=== PATIENT | male | born 2000 | race Caucasian/White ===

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

== ENCOUNTER 2019-09-24 21:44 | Emergency (ER) | payer OTHER ==
--- NOTE | 2019-09-24 21:53 | PDOC ---
Rapid Medical Evaluation Chief Complaint: Chest Pain Time Seen by Provider: 09/24/19 21:53 Medical Evaluation: Allergies Allergy/AdvReac Type Severity Reaction Status Date / Time No Known Allergies Allergy Verified 10/17/16 04:51 09/24/19 21:53 19 year old male c/o palpitations and left sided chest pain started today. A: palpitations/ chest pain P: ekg chest xray 09/24/19 21:57 Discharge Disposition - Diagnosis Palpitations Chest pain Qualifiers: Chest pain type: unspecified Qualified Code(s): R07.9 - Chest pain, unspecified - Referrals - Patient Instructions - Post Discharge Activity
[2019-09-24 21:55] VITALS: BP 121/68; PULSE 70; TEMP 98.5; BMI 22.3
--- NOTE | 2019-09-24 22:06 | PDOC ---
History of Present Illness - General History Source: Patient Exam Limitations: No Limitations <Lewis Quinn - Last Filed: 09/25/19 02:17> <Reema Caicedo - Last Filed: 09/25/19 22:22> - General Chief Complaint: Chest Pain Stated Complaint: CHEST PAIN Time Seen by Provider: 09/24/19 21:53 - History of Present Illness Initial Comments: 09/24/19 22:06 19y previously healthy M presenting w palpitations w subsequent left sided chest discomfort radiating up neck/jaw numbness at 5pm today while sitting in the car talking to friend started today, lasting 1min, self resolved discomfort w persistent palpitations since. 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 No fam cardiac hx. Smokes marijuana and hooka, last use this morning. Denies fever, n/v, cough, SOB. (Lewis Quinn) Past History - Medical History COPD: No - Immunization History Immunization Up to Date: Yes - Psycho-Social/Smoking History Smoking History: Current every day smoker Have you smoked in the past 12 months: Yes Number of Cigarettes Smoked Daily: 0 Information on smoking cessation initiated: Yes - Substance Abuse Hx (Audit-C & DAST Scrn) How often the patient has a drink containing alcohol: Monthly or less How often the patient has six or more drinks on one occasion: Never Score: In Men: 4 or > Positive; In Women: 3 or > Positive: 1 Screen Result (Pos requires Nsg. Audit-10AR): Negative In the last yr the pt used illegal drug/Rx for NonMed reason: Yes Score: Yes response is considered Positive: 1 Screen Result (Positive result requires Nsg. DAST-10): Positive <Lewis Quinn - Last Filed: 09/25/19 02:17> <Reema Caicedo - Last Filed: 09/25/19 22:22> - Medical History Allergies/Adverse Reactions: Allergies Allergy/AdvReac Type Severity Reaction Status Date / Time No Known Allergies Allergy Verified 09/24/19 21:55 Home Medications: Ambulatory Orders Cyclobenzaprine HCl 7.5 mg PO HS PRN #5 tablet 10/17/16 Naproxen 250 mg PO BID #14 tablet 10/17/16 Review of Systems - Review of Systems Constitutional: No: Chills, Fever HEENTM: No: Eye Pain, Ear Discharge Respiratory: No: Cough, Shortness of Breath Cardiac (ROS): Yes: Palpitations. No: Chest Pain, Lightheadedness ABD/GI: No: Nausea, Vomiting : No: Burning, Flank Pain Musculoskeletal: No: Back Pain, Joint Pain Integumentary: No: Bruising, Dryness Neurological: No: Headache, Seizure Psychiatric: Yes: Stressors. No: Anxiety, Depression Endocrine: No: Intolerance to Cold, Intolerance to Heat Hematologic/Lymphatic: No: Anemia, Blood Clots <Lewis Quinn - Last Filed: 09/25/19 02:17> *Physical Exam - Physical Exam General Appearance: Yes: Nourished, Appropriately Dressed. No: Apparent Distress HEENT: positive: EOMI, AGGIE, Normal Voice, Hearing Grossly Normal. negative: Scleral Icterus (R), Scleral Icterus (L) Respiratory/Chest: positive: Lungs Clear, Normal Breath Sounds. negative: Chest Tender, Respiratory Distress Cardiovascular: positive: Regular Rhythm, Regular Rate, S1, S2. negative: Edema, Murmur Gastrointestinal/Abdominal: positive: Normal Bowel Sounds, Flat, Soft. negative: Tender, Organomegaly Integumentary: positive: Normal Color, Warm. 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 negative: Facial Droop, Numbness, Sensory Deficit, Confused, Disoriented <Lewis Quinn - Last Filed: 09/25/19 02:17> - Vital Signs Last Vital Signs Temp Pulse Resp BP Pulse Ox 98.5 F 70 18 121/68 99 09/24/19 21:53 09/24/19 21:53 09/24/19 21:53 09/24/19 21:53 09/24/19 22:33 ED Treatment Course - LABORATORY CBC & Chemistry Diagram: 09/24/19 22:30 09/24/19 22:30 <Lewis Quinn - Last Filed: 09/25/19 02:17> - LABORATORY CBC & Chemistry Diagram: 09/24/19 22:30 09/24/19 22:30 <Reema Caicedo - Last Filed: 09/25/19 22:22> - ADDITIONAL ORDERS Additional order review: 09/24/19 22:30 RBC 4.80 MCV 94.2 MCHC 34.1 RDW 13.1 MPV 7.8 Neutrophils % 53.2 D Lymphocytes % 37.5 D Monocytes % 7.2 Eosinophils % 1.6 Basophils % 0.5 Medical Decision Making <[place],Lewis - Last Filed: 09/25/19 02:17> - Medical Decision Making 09/24/19 22:36 CXR - no acute pathology EKG 2147 - NSR, LVH, HR 63, QTc 388, TWI V1-2, peaked TW V3-6 2nd EKG 0132 - normalized TWI V2, unchanged LVH, peaked TW --- 19y previously healthy M presenting w palpitations w subsequent left sided chest discomfort, neck/jaw numbness at 5pm today Likely anxiety. Low concern for CVA (no focal neuro deficits) vs ACS (few risk factors, young age, neg tropx2) vs PNA (clear lungs) vs thyroid (wnl). EKG showed LVH, Peaked T waves V3-6, no priors Pt eloped before 2nd trop resulted (Lewis Quinn) Discharge - Discharge Information Problems reviewed: Yes <Lewis Quinn - Last Filed: 09/25/19 02:17> <Reema Caicedo - Last Filed: 09/25/19 22:22> - Discharge Information Clinical Impression/Diagnosis: Palpitations Condition: Good Disposition: ELOPED - Follow up/Referral Referrals: Ryley Hicks MD [Staff Physician] - Yfn Starks MD [Staff Physician] - - Patient Discharge Instructions Patient Printed Discharge Instructions: DI for Chest Pain Additional Instructions: You left against medical advice before all of your lab testing resulted Follow up with the referred primary care Dr Hicks and psychotherapist Dr Starks
[2019-09-24 22:37] LABS: BASO % 0.5 % (0-2.0); EOS % 1.6 % (0-4.5); HEMATOCRIT 45.2 % (35.4-49); HEMOGLOBIN 15.4 GM/dL (11.7-16.9); LYMPH % 37.5 % (8-40); MCH 32.1 pg (25.7-33.7); MCHC 34.1 g/dl (32.0-35.9); MEAN CELL VOLUME 94.2 fl (80-96); MEAN PLT VOLUME 7.8 fl (7.5-11.1); MONO % 7.2 % (3.8-10.2); NEUT % 53.2 % (42.8-82.8); PLATELET COUNT 184 K/MM3 (134-434); RDW 13.1 % (11.9-15.9); WHITE BLOOD COUNT 5.9 K/mm3 (4.0-10.0)
[2019-09-24 23:08] LABS: PH,URINE 5.5 (5.0-8.0); URINE APPEARANCE CLEAR; URINE BILIRUBIN NEGATIVE (NEGATIVE); URINE COLOR YELLOW; URINE GLUCOSE (UA) NEGATIVE (NEGATIVE); URINE KETONE NEGATIVE (NEGATIVE); URINE LEUK ESTERASE NEGATIVE (NEGATIVE); URINE NITRITE NEGATIVE (NEGATIVE); URINE PROTEIN NEGATIVE (NEGATIVE)
[2019-09-24 23:12] LABS: ALBUMIN 4.6 g/dl (3.4-5.0); ALK PHOS 76 U/L (45-117); ANION GAP 6 MMOL/L (8-16); BILIRUBIN,TOTAL 0.8 mg/dL (0.2-1); BLOOD UREA NITROGEN 7.4 mg/dL (7-18); CALCIUM 8.9 mg/dL (8.5-10.1); CHLORIDE 108 mmol/L (98-107); CO2 25 mmol/L (21-32); CREATININE 0.8 mg/dL (0.55-1.3); GLUCOSE,RANDOM 87 mg/dL (74-106); POTASSIUM 3.9 mmol/L (3.5-5.1); SGOT/AST 15 U/L (15-37); SGPT/ALT 16 U/L (13-61); SODIUM 139 mmol/L (136-145); TOT PROT 7.5 g/dl (6.4-8.2)
[2019-09-24 23:17] LABS: COCAINE, UR NEGATIVE ng/ml (CUTOFF=300); OPIATES, URI NEGATIVE ng/ml (CUTOFF=300); URINE AMPHETAMINES NEGATIVE ng/ml (CUTOFF=500); URINE BARBITURATES NEGATIVE ng/ml (CUTOFF=200)
[2019-09-24 23:18] LABS: METHADONE, UR NEGATIVE ng/ml (CUTOFF=300); PHENCYCLIDINE,URINE NEGATIVE ng/ml (CUTOFF=25); URINE BENZODIAZEPINES NEGATIVE ng/ml (CUTOFF=200)
--- NOTE | 2019-09-24 23:53 | PDOC ---
Documentation entered by Elder Daniel SCRIBE, acting as scribe for Reema Caicedo MD. Reema Caicedo MD: This documentation has been prepared by the scribe, Elder Hammer SCRIBE, under my direction and personally reviewed by me in its entirety. I confirm that the documentation accurately reflects all work, treatment, procedures, and medical decision making performed by me. Attending Attestation - Resident Resident Name: Lewis Quinn - ED Attending Attestation I have performed the following: I have examined & evaluated the patient, The case was reviewed & discussed with the resident, I agree w/resident's findings & plan, Exceptions are as noted - HPI HPI: 09/24/19 23:01 The patient is a 19 year old male with no significant past medical history who presents to the ED with chest pain causing radiating cheek and jaw numbness/pain that began tonight at 5pm while sitting in a car with friends. The patient endorses intermittent chest palpitations that began 1 month ago. He notes experiencing new stressors including dropping out of school and starting a new job. Denies fever, chills and/or any GI symptoms. Denies any symptoms. Denies any other symptoms. Allergies: NKDA Social Hx: The patient reports he currently smokes cigarettes, marijuana, and hookah (last smoked this afternoon. Patient reports he consumes alcohol monthly or less. Surgical Hx:None reported Family Hx: None reported - Physicial Exam PE: 09/24/19 23:30 GENERAL: Well-appearing, well-nourished. No apparent distress. HEENT: Normocephalic, atraumatic. PERRL, EOM intact. CARDIOVASCULAR: Normal S1, S2. Regular rate and rhythm. PULMONARY: Clear to auscultation bilaterally. ABDOMEN: Soft, non-distended, non-tender. EXTREMITIES: Normal ROM in all four extremities. No gross deformities. SKIN: Warm, dry. No rash NEUROLOGICAL: No focal neurological deficits. - Medical Decision Making 09/24/19 23:49 slender 19 yo male experienced palpitations and chest tightness and some epigastric burning today that last 10-15 minutes no family h/o early cardiac demise denies shortness of breath ,lightheadedness first troponin negative 09/24/19 23:52 ekg NSR @ 63 bpm, LVH 07/13/20 23:53 cxr napd 09/25/19 01:59 second ekg bradycardia @ 45 bpm, minimal voltage criteria for LVF Discharge - Discharge Information Problems reviewed: Yes Clinical Impression/Diagnosis: Palpitations Condition: Good Disposition: ELOPED - Follow up/Referral Referrals: Ryley Hicks MD [Staff Physician] - Yfn Starks MD [Staff Physician] - - Patient Discharge Instructions Patient Printed Discharge Instructions: DI for Chest Pain Additional Instructions: You left against medical advice before all of your lab testing resulted Follow up with the referred primary care Dr Hicks and casket trimmer Dr Starks - Post Discharge Activity
--- NOTE | 2019-09-25 09:54 | EKG ---
Test Reason : Blood Pressure : / mmHG Vent. Rate : 045 BPM Atrial Rate : 045 BPM P-R Int : 124 ms QRS Dur : 100 ms QT Int : 438 ms P-R-T Axes : 032 036 041 degrees QTc Int : 378 ms SINUS BRADYCARDIA MINIMAL VOLTAGE CRITERIA FOR LVH, MAY BE NORMAL VARIANT BORDERLINE ECG WHEN COMPARED WITH ECG OF 24-SEP-2019 21:48, RSR' PATTERN IN V1 IS NO LONGER PRESENT Confirmed by MD GUZMAN, CATHERINE ([id number]) on 09/25/2019 9:53:59 AM Referred By: Confirmed By:CATHERINE HINDS MD
--- NOTE | 2019-09-25 09:56 | EKG ---
Test Reason : Blood Pressure : / mmHG Vent. Rate : 063 BPM Atrial Rate : 063 BPM P-R Int : 122 ms QRS Dur : 096 ms QT Int : 380 ms P-R-T Axes : 057 058 054 degrees QTc Int : 388 ms NORMAL SINUS RHYTHM LEFT ATRIAL ENLARGEMENT INCOMPLETE RBBB LEFT VENTRICULAR HYPERTROPHY ABNORMAL ECG NO PREVIOUS ECGS AVAILABLE Confirmed by MD HINDS MOYSES ([id number]) on 09/25/2019 9:55:48 AM Referred By: Confirmed By:CATHERINE HINDS MD
== END 2019-09-25 02:25 | disposition left against medical advice (07) ==
LOC: JER 21:44
DX: R00.2 Palpitations (principal)
CPT/HCPCS: 36415; 71046-TC-FY; 80053; 80307; 81003; 82550; 82553; 84443; 84484; 85025; 93005; 93010; 99285-25

== ENCOUNTER 2022-08-26 10:29 | Emergency (ER) | payer SELFPAY ==
[2022-08-26 11:19] VITALS: BP 115/62; PULSE 68; RESP 17; TEMP 98.3; BMI 23.8
[2022-08-26 12:04] LABS: BASO % 0.5 % (0-2.0); EOS % 3.7 % (0-4.5); HEMATOCRIT 43.8 % (35.4-49); LYMPH % 30.1 % (8-40); MCH 31.6 pg (25.7-33.7); MCHC 34.2 g/dl (32.0-35.9); MEAN CELL VOLUME 92.4 fl (80-96); MEAN PLT VOLUME 7.5 fl (7.5-11.1); NEUT % 58.7 % (42.8-82.8); PLATELET COUNT 188 10^3/uL (134-434); RBC 4.74 M/mm3 (4.00-5.60); RDW 12.6 % (11.9-15.9); WHITE BLOOD COUNT 5.4 K/mm3 (4.0-10.0)
[2022-08-26 12:07] LABS: INR 0.98 (0.83-1.09); PROTHROMBIN TIME (PATIENT) 11.4 SEC (9.7-13.0)
[2022-08-26 12:10] LABS: ACTIVATED PTT 30.2 SECONDS (25.2-36.5)
[2022-08-26 12:18] LABS: POTASSIUM 4.5 mmol/L (3.5-5.1)
[2022-08-26 12:20] LABS: BLOOD UREA NITROGEN 9.2 mg/dL (7-18)
[2022-08-26 12:23] LABS: CREATININE 0.8 mg/dL (0.55-1.3)
[2022-08-26 12:25] LABS: BILIRUBIN,TOTAL 0.5 mg/dL (0.2-1); TOT PROT 6.8 g/dl (6.4-8.2)
== END 2022-08-26 13:20 | disposition home or self-care (01) ==
LOC: JER 10:29
DX: R07.89 Other chest pain (principal); R42 Dizziness and giddiness; R06.02 Shortness of breath
CPT/HCPCS: 36415; 71046-TC-FY; 80053; 83735; 84484; 85025; 85610; 85730; 93005; 93010; 99285-25

== ENCOUNTER 2022-09-16 02:27 | Emergency (ER) | payer SELFPAY ==
[2022-09-16 02:35] VITALS: BP 105/70; PULSE 83; RESP 17; TEMP 98; BMI 24.7
[2022-09-16] MEDS ORDERED: ACETAMINOPHEN 325 MG TABLET (FP) PO ONE (04:40)
[2022-09-16] MEDS ORDERED: ACETAMINOPHEN 325 MG TABLET (FP) ONE (04:53)
== END 2022-09-16 05:12 | disposition home or self-care (01) ==
LOC: JER 02:27
DX: R51.9 Headache, unspecified (principal); H57.12 Ocular pain, left eye; R06.02 Shortness of breath; R09.81 Nasal congestion; R00.2 Palpitations
CPT/HCPCS: 99283-25